=== PATIENT | female | born 1945 | race Caucasian/White ===

== ENCOUNTER 2019-07-25 12:08 | Inpatient (IN) | payer OTHER ==
[~2019-07-25] VITALS: Ht 167.6 cm; Wt 81.7 kg
[2019-07-25] MEDS ORDERED: IOVERSOL 350 MG/ML 100 ML VIAL ONE (12:19)
[2019-07-25] MEDS ORDERED: ATEN25TA PO (12:26)
[2019-07-25] MEDS ORDERED: ATOR40TA28 PO (12:26)
[2019-07-25] MEDS ORDERED: AMLO10TA7 PO (12:26)
[2019-07-25] MEDS ORDERED: LEVO50 PO (12:26)
[2019-07-25 12:52] LABS: EOSINOPHILS % (AUTO) 2.9 % (1.0-6.0); HEMATOCRIT 45.1 % (36-46); HEMOGLOBIN 14.7 g/dL (12.0-16.0); LYMPHOCYTES # (AUTO) 2.6 K/uL (1.0-4.8); LYMPHOCYTES % (AUTO) 33.3 % (22.0-44.0); MEAN CORPUSCULAR HEMOGLOBIN 28.4 pg (26.0-34.0); MEAN CORPUSCULAR HGB CONC 32.5 G/dL (31.0-37.0); MEAN CORPUSCULAR VOLUME 88 fL (80-100); MONOCYTES # (AUTO) 0.7 K/uL (0.1-1.0); NEUTROPHILS # (AUTO) 4.2 K/uL (1.8-7.7); NEUTROPHILS % (AUTO) 53.8 % (40.0-70.0); PLATELET COUNT (AUTO) 241 K/uL (150-450); RED BLOOD CELL COUNT(AUTO) 5.16 MIL/uL (4.00-5.20); RED CELL DISTRIBUTION WIDTH 14.6 % (11.5-14.5)
[2019-07-25] MEDS ORDERED: LABETALOL HCL 5 MG/ML 20 ML VIAL IVP ONE (13:00)
[2019-07-25] MEDS ORDERED: ALTEPLASE PER STROKE PROTOCOL CLINICAL ONE (13:00)
[2019-07-25 13:09] LABS: PROTHROMBIN TIME 10.5 SEC (9.4-11.6)
[2019-07-25 13:10] LABS: ANION GAP 8 mmol/L (8-16); CALCIUM, TOTAL 9.1 mg/dL (8.8-10.5); CARBON DIOXIDE 32 mmol/L (22-29); CHLORIDE 104 mmol/L (98-107); GLOMERULAR FILTR. RATE CALC > 60 mL/min (>60); GLUCOSE,RANDOM 111 mg/dL (70-110); POTASSIUM 3.4 mmol/L (3.5-5.1); SODIUM SERUM 144 mmol/L (136-145); UREA NITROGEN, BLOOD 14 mg/dL (7-18)
[2019-07-25] MEDS ORDERED: POTASSIUM CHLORIDE 20 MEQ ER TABLET PO PRN (13:15)
[2019-07-25] MEDS ORDERED: ALTEPLASE IV ONE (13:15)
[2019-07-25] MEDS ORDERED: BISACODYL 10 MG RECTAL RECTAL SUPPOSITORY PR PRN (13:15)
[2019-07-25] MEDS ORDERED: WATER FOR INJECTION STERILE IV ONE (13:15)
[2019-07-25] MEDS ORDERED: ONDANSETRON HCL 4 MG/2 ML VIAL IVP PRN ×2 (13:15)
[2019-07-25] MEDS ORDERED: POTASSIUM CHL 10 MEQ/WATER 50 ML IV PRN (13:15)
[2019-07-25] MEDS ORDERED: ALTEPLASE 7.7 MG in WATER FOR INJECTION,STERILE 7.7 ML IV ONE (13:15)
[2019-07-25] MEDS ORDERED: ACETAMINOPHEN 325 MG TABLET PO PRN ×2 (13:15)
[2019-07-25 13:16] LABS: ALANINE AMINOTRANSFERASE 25 U/L (12-78); ALBUMIN 3.4 g/dL (3.4-5.0); ALKALINE PHOSPHATASE 94 U/L (46-116); ASPARTATE AMINOTRANSFERASE 18 U/L (15-37); BILIRUBIN,TOTAL 0.9 mg/dL (0.1-1.0); TOTAL PROTEIN, SERUM 7.1 g/dL (6.4-8.2)
[2019-07-25] MEDS: NiCARDipine HCL 25 MG in DEXTROSE 5%-WATER 240 ML IV PRN (15:03)
[2019-07-25 15:34] LABS: APPEARANCE,URINE CLEAR (CLEAR); BILIRUBIN,URINE NEGATIVE (NEGATIVE); GLUCOSE, URINE (UA) NEGATIVE (NEGATIVE); KETONES,URINE NEGATIVE (NEGATIVE); LEUKOCYTE ESTERASE ,URINE NEGATIVE (NEGATIVE); NITRATE,URINE NEGATIVE (NEGATIVE); OCCULT BLOOD,URINE SMALL (NEGATIVE); PROTEIN,URINE NEGATIVE (NEGATIVE); UROBILINOGEN,URINE 0.2 mg/dL (<=1.0)
[2019-07-25 15:49] LABS: AMPHET/METH SCREEN,URINE NEGATIVE (NEGATIVE); BARBITURATE SCREEN, URINE NEGATIVE (NEGATIVE); BENZODIAZEPINES SCREEN,URINE NEGATIVE (NEGATIVE); CANNABINOID SCREEN,URINE NEGATIVE (NEGATIVE); COCAINE SCREEN,URINE NEGATIVE (NEGATIVE); METHADONE SCREEN, URINE NEGATIVE (NEGATIVE); OPIATE SCREEN,URINE NEGATIVE (NEGATIVE)
[2019-07-25 15:53] LABS: PHENCYCLIDINE SCREEN,URINE NEGATIVE (NEGATIVE)
[2019-07-25 15:54] LABS: BACTERIA,URINE None Seen /HPF (None Seen); RBC,URINE 0-2 /HPF (0-2); WBC,URINE 0-2 /HPF (0-5)
[2019-07-25 15:55] LABS: SQUAMOUS EPITHELIAL CELL,UR Rare /LPF (None Seen)
[2019-07-26 08:08] LABS: GLUCOSE,POINT OF CARE 100 MG/DL (70-110)
[2019-07-26] MEDS: PANTOPRAZOLE SODIUM 40 MG/VIAL IVP SCH (09:05)
[2019-07-26] MEDS: NiCARDipine HCL 25 MG in DEXTROSE 5%-WATER 240 ML IV PRN ×2 (10:36→14:38)
[2019-07-26 11:07] LABS: BASOPHILS % (AUTO) 0.9 % (0.0-2.0); EOSINOPHILS % (AUTO) 1.4 % (1.0-6.0); HEMOGLOBIN 15.8 g/dL (12.0-16.0); LYMPHOCYTES # (AUTO) 2.9 K/uL (1.0-4.8); LYMPHOCYTES % (AUTO) 28.7 % (22.0-44.0); MEAN CORPUSCULAR HEMOGLOBIN 28.7 pg (26.0-34.0); MEAN CORPUSCULAR HGB CONC 32.8 G/dL (31.0-37.0); MEAN CORPUSCULAR VOLUME 88 fL (80-100); MONOCYTES # (AUTO) 0.7 K/uL (0.1-1.0); MONOCYTES % (AUTO) 6.7 % (2.0-9.0); NEUTROPHILS # (AUTO) 6.2 K/uL (1.8-7.7); NEUTROPHILS % (AUTO) 62.3 % (40.0-70.0); PLATELET COUNT (AUTO) 227 K/uL (150-450); RED BLOOD CELL COUNT(AUTO) 5.49 MIL/uL (4.00-5.20); RED CELL DISTRIBUTION WIDTH 14.8 % (11.5-14.5)
[2019-07-26 11:26] LABS: HEMOGLOBIN A1C 6.2 % (4.5-6.2)
[2019-07-26 11:29] LABS: ANION GAP 8 mmol/L (8-16); CALCIUM, TOTAL 9.2 mg/dL (8.8-10.5); CARBON DIOXIDE 29 mmol/L (22-29); CHLORIDE 103 mmol/L (98-107); CREATININE 0.62 mg/dL (0.60-1.30); GLOMERULAR FILTR. RATE CALC > 60 mL/min (>60); GLUCOSE,RANDOM 109 mg/dL (70-110); POTASSIUM 3.6 mmol/L (3.5-5.1); SODIUM SERUM 140 mmol/L (136-145); UREA NITROGEN, BLOOD 13 mg/dL (7-18)
[2019-07-26 11:37] LABS: CHOL/HDL RATIO 2.7 (3.9-5.7); THYROID STIMULATING HORMONE 4.69 uIU/mL (0.36-3.74)
[2019-07-26 15:48] LABS: GLUCOSE,POINT OF CARE 152 MG/DL (70-110)
[2019-07-27] MEDS: PANTOPRAZOLE SODIUM 40 MG/VIAL IVP SCH (08:23)
[2019-07-27] MEDS: ATORVASTATIN CALCIUM 40 MG TABLET PO SCH (14:30)
[2019-07-27 17:00] VITALS: BP 175/90
[2019-07-27 20:12] VITALS: BP 170/92
[2019-07-27 23:18] VITALS: BP 138/89
[2019-07-28 05:26] VITALS: BP 151/79
[2019-07-28 07:40] VITALS: BP 138/83
[2019-07-28] MEDS: ASPIRIN 81 MG CHEWABLE TABLET PO SCH (10:00)
[2019-07-28] MEDS: ATORVASTATIN CALCIUM 40 MG TABLET PO SCH (10:00)
[2019-07-28] MEDS: PANTOPRAZOLE SODIUM 40 MG/VIAL IVP SCH (10:00)
[2019-07-28] MEDS: AmLODIPine BESYLATE 5 MG TABLET PO SCH (11:00)
[2019-07-28 11:43] VITALS: BP 159/82
[2019-07-28 16:05] VITALS: BP 150/81
[2019-07-28 19:50] VITALS: BP 153/96
[2019-07-29] VITALS (7 sets, daily range): BP systolic 116–155; BP diastolic 64–94
[2019-07-29] MEDS: PANTOPRAZOLE SODIUM 40 MG/VIAL IVP SCH (08:16)
[2019-07-29] MEDS: AmLODIPine BESYLATE 5 MG TABLET PO SCH (08:16)
[2019-07-29] MEDS: ATORVASTATIN CALCIUM 40 MG TABLET PO SCH (08:16)
[2019-07-29] MEDS: ASPIRIN 81 MG CHEWABLE TABLET PO SCH (08:16)
[2019-07-30 04:00] VITALS: BP 153/94
[2019-07-30 07:45] VITALS: BP 154/92
[2019-07-30] MEDS: PANTOPRAZOLE SODIUM 40 MG/VIAL IVP SCH (08:29)
[2019-07-30] MEDS: ATORVASTATIN CALCIUM 40 MG TABLET PO SCH (08:30)
[2019-07-30] MEDS: AmLODIPine BESYLATE 5 MG TABLET PO SCH (08:30)
[2019-07-30] MEDS: ASPIRIN 81 MG CHEWABLE TABLET PO SCH (08:31)
[2019-07-30 11:08] VITALS: BP 117/65
== END 2019-07-30 15:14 | disposition short-term general hospital (02) | DRG 63 ==
LOC: EMS 12:10 → 5N 07-27 14:05
PROVIDERS: ADMIT Internal Medicine; ATTEND Internal Medicine
DX: I63.9 Cerebral infarction, unspecified (principal); E11.9 Type 2 diabetes mellitus without complications; I10 Essential (primary) hypertension; E78.00 Pure hypercholesterolemia, unspecified; E78.5 Hyperlipidemia, unspecified; R29.706 NIHSS score 6; Z86.73 Personal history of transient ischemic attack (TIA), and cerebral infarction without residual deficits; Z79.899 Other long term (current) drug therapy; R47.01 Aphasia
CPT/HCPCS: 70496; 83036; 84443; 86850; 86900; 86901; 92507; 92526; 92610; 93005; 97116; 97162; 97166; 97530; 97535; 99291; C9113; J2997; J3490; J7060